=== PATIENT | female | born 1985 | race Caucasian/White ===

== ENCOUNTER 2017-11-16 19:30 | Emergency (ER) | payer BC ==
[2017-11-16 19:36] VITALS: BP 122/70
[2017-11-16] MEDS ORDERED: ALPRAZolam 0.25 MG Tab PO PRN (20:20)
--- NOTE | 2017-11-16 20:24 | EDM.PDOC ---
ED HPI GENERAL MEDICAL PROBLEM - General Chief Complaint: General Stated Complaint: ANXIETY Time Seen by Provider: 11/16/17 19:50 Source of Information: Reports: Patient History Limitations: Reports: No Limitations - History of Present Illness INITIAL COMMENTS - FREE TEXT/NARRATIVE: Patient presents to ER with severe anxiety. States she has been struggling for several months with anxiety and today it hit a breaking point. She feels overwhelmed, couldn't even function today as a result. She relates she has had brief episodes of this over the last 8 years, has taken Xanax for 2-3 weeks and then is able to "get a hold of myself" and cope through it. 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 States she does not ever get any time to herself and she feels guilty if she leaves her kids more than while she is at work. Patient expresses embarrassment of having concerns like this and never feels comfortable with telling anyone these concerns and opening up to her about it. Denies being suicidal. Onset: Gradual Duration: Hour(s): Severity: Severe Associated Symptoms: Reports: Headaches, Nausea/Vomiting. 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 Headache Pain Score (Numeric/FACES): 5 - Related Data Allergies Allergy/AdvReac Type Severity Reaction Status Date / Time codeine Allergy Cannot Verified 10/05/16 19:10 Remember Home Meds: Home Meds Calcium Carbonate [Calcium] 600 mg PO DAILY 11/16/17 [History] Megaplex 1 tab PO DAILY 11/16/17 [History] Multivitamin [Daily Multiple Vitamin] 1 tab PO DAILY 11/16/17 [History] Past Medical History - Past Health History Medical/Surgical History: Denies Medical/Surgical History 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 STUDY History: Reports: Other OB/BYN History: Due 01/07/17 - Past Surgical History HEENT Surgical History: Reports: Adenoidectomy, Other (See Below) Other HEENT Surgeries/Procedures: EAR DRUM REPAIR Female Surgical History: Reports: Section, D&C Musculoskeletal Surgical History: Reports: Other (See Below) Other Musculoskeletal Surgeries/Procedures:: ACL REPAIR Social & Family History - Tobacco Use Smoking Status *Q: Never Smoker - Caffeine Use Caffeine Use: Reports: Coffee - Recreational Drug Use Recreational Drug Use: No - Living Situation & Occupation Living situation: Reports: , with Family Occupation: Employed ED ROS GENERAL - Review of Systems Review Of Systems: ROS reveals no pertinent complaints other than HPI. ED EXAM, GENERAL - Physical Exam Exam: See Below Exam Limited By: No Limitations General Appearance: Alert, WD/WN, No Apparent Distress Ears: Normal External Exam, Normal TMs Nose: Normal Inspection, Normal Mucosa, No Blood Throat/Mouth: Normal Inspection, Normal Oropharynx Head: Normocephalic Neck: Normal Inspection, Supple, Non-Tender Respiratory/Chest: No Respiratory Distress, Lungs Clear, Normal Breath Sounds Cardiovascular: Regular Rate, Rhythm GI/Abdominal: Normal Bowel Sounds, Soft, Non-Tender Neurological: Alert, Oriented Psychiatric: Normal Affect, Normal Mood Skin Exam: Warm, Dry Course - Vital Signs Last Recorded V/S: Last Vital Signs Temp 97.3 F 11/16/17 19:31 Pulse 104 H 11/16/17 19:31 Resp 20 11/16/17 19:31 BP 122/70 11/16/17 19:31 Pulse Ox 100 11/16/17 19:31 - Orders/Labs/Meds Orders: Active Orders 24 hr Category Date Time Status ALPRAZolam [Xanax] Med 11/16/17 20:20 Ordered 0.25 mg PO Q4H PRN Medication Orders Alprazolam (Xanax) 0.25 mg PO Q4H PRN PRN Reason: Anxiety Last Admin: 11/16/17 20:24 Dose: 0.25 mg Meds: Medications Generic Name Dose Route Start Last Admin Trade Name Freq PRN Reason Stop Dose Admin Alprazolam 0.25 mg 11/16/17 20:20 11/16/17 20:24 Xanax PO 0.25 mg Q4H PRN Administration Anxiety - Re-Assessments/Exams Free Text/Narrative Re-Assessment/Exam: 11/16/17 20:20 Approximately 30 minutes spent discussing current symptoms with patient. More calm after. Will start Xanax and see how she does. Encouraged counseling or membership to the fitness center which has helped her tremendously in the past. Departure - Departure Time of Disposition: 20:19 Disposition: Home, Self-Care 01 Condition: Good Clinical Impression: Anxiety - Discharge Information Referrals: Nirmal Lopez PA-C [Primary Care Provider] - Forms: ED Department Discharge Additional Instructions: 1. Rest 2. Xanax 0.25 mg every 8 hours as needed for anxiety 3. Return if continue to have any concerns. - My Orders Last 24 Hours: My Active Orders 11/16/17 20:20 ALPRAZolam [Xanax] 0.25 mg PO Q4H PRN - Assessment/Plan Last 24 Hours: My Active Orders 11/16/17 20:20 ALPRAZolam [Xanax] 0.25 mg PO Q4H PRN
== END 2017-11-16 20:30 | disposition home or self-care (01) ==
LOC: CC.ED 19:30
DX: F41.9 Anxiety disorder, unspecified (principal); Z88.5 Allergy status to narcotic agent; Z79.899 Other long term (current) drug therapy
CPT/HCPCS: 99282; A9270